=== PATIENT | female | born 1985 | race Two or more races ===

== ENCOUNTER 2023-04-14 22:28 | Emergency (ER) | payer BC, MEDICAID ==
[~2023-04-14] VITALS: Ht 167.6 cm; Wt 63.5 kg
[2023-04-14] MEDS ORDERED: LORazepam 2MG/ML-1ML VIAL ONE (22:33)
[2023-04-14 22:36] VITALS: PULSE 68; RESP 12; O2SAT 100
[2023-04-14] MEDS ORDERED: LORazepam 2MG/ML-1ML VIAL IV ONE (22:45)
[2023-04-14] MEDS ORDERED: PHENYTOIN IV DILANTIN 1,000 MG in SODIUM CHL 0.9% 250 ML IV ONE (23:00)
[2023-04-14 23:19] LABS: Urine Bacteria NONE SEEN /hpf (None Seen); Urine Blood Negative /uL (Negative); Urine Clarity Clear (Clear); Urine Color Colorless (Yellow); Urine Protein, UAD Negative (Negative); Urine Specific Gravity 1.025 (1.001-1.035); Urine Urobilinogen Normal (Negative); Urine WBC 1 /hpf (0 - 5)
[2023-04-14] MEDS ORDERED: PHENYTOIN SODIUM 50 MG/ML 5ML INJ VIAL IV ONE (23:22)
[2023-04-14 23:23] LABS: Basophils # (auto) 0 10 ^3/uL (0-0.2); Basophils % (auto) 0.3 % (0.0-2.0); Eosinophils # (auto) 0 10 ^3/uL (0-0.8); Eosinophils % (auto) 0.6 % (0.0-7.0); Hematocrit 34.7 % (36.0-46.0); Hemoglobin 10.9 g/dL (12.2-16.2); Lymphocytes # (auto) 0.8 10 ^3/uL (0.4-5.4); Mean Corpuscular Hemoglobin 30.1 pg (28.0-32.0); Mean Corpuscular Hgb Conc. 31.5 g/dL (32.0-36.0); Mean Corpuscular Volume 95.4 fL (80.0-100.0); Monocytes # (auto) 0.4 10 ^3/uL (0-1.3); Monocytes % (auto) 7.4 % (0.0-12.0); Neutrophils # (auto) 3.7 10 ^3/uL (1.6-8.6); Neutrophils % (auto) 74.7 % (37.0-80.0); Nucleated Red Blood Cells % 0.1 %; Red Blood Cells 3.63 10^6/uL (4.0-5.20); Red Cell Distribution Width 14.8 % (11.8-14.3)
[2023-04-14] MEDS ORDERED: PHENYTOIN SODIUM 50 MG/ML 2ML VIAL IV ONE (23:23)
[2023-04-14 23:42] LABS: Alanine Aminotransferase 23 U/L (7-40); Alkaline Phosphatase 97 U/L (46-116); Anion Gap 6 (5-15); Aspartate Aminotransferase 24 U/L (13-40); BUN/Creatinine Ratio 10.1 (10.0-20.0); Bilirubin, Total 0.2 mg/dL (0.2-1.0); Blood Urea Nitrogen 10 mg/dL (9-23); Calcium 8.7 mg/dL (8.7-10.4); Carbon Dioxide 24 mmol/L (20-30); Chloride 107 mmol/L (98-107); Magnesium 1.7 mg/dL (1.6-2.6); Phosphorus 2.7 mg/dL (2.4-5.1); Potassium 4.6 mmol/L (3.5-5.1); Sodium 137 mmol/L (136-145)
[2023-04-14 23:55] LABS: Glucose 579 mg/dL (74-106)
[2023-04-15] MEDS ORDERED: InsuLIN REG 1unit/0.01ml Soln (100units/ml) IV ONE ×2 (00:15→03:45)
[2023-04-15] MEDS ORDERED: OXYCODONE W/ ACETAMINOPHEN 5/325MG TABLET PO ONE (03:45)
[2023-04-15 06:00] VITALS: BP 114/75; PULSE 97; RESP 22; TEMP 98.3; O2SAT 97
== END 2023-04-15 06:20 | disposition home or self-care (01) ==
LOC: ER 22:28 → EDBD 22:28 → ER 04-15 06:20
DX: E10.65 Type 1 diabetes mellitus with hyperglycemia (principal); R56.9 Unspecified convulsions; F15.90 Other stimulant use, unspecified, uncomplicated
CPT/HCPCS: 36415; 70450; 80053; 81001; 82962; 83735; 84100; 85025; 96365; 96375; 96376; 99285; J1165; J1815; J2060